=== PATIENT | female | born 1955 | race Caucasian/White ===

== ENCOUNTER 2016-04-14 18:15 | Emergency (ER) | payer OTHER ==
[~2016-04-14] VITALS: Ht 137.2 cm; Wt 50.0 kg
[~2016-04-14 18:15] MED LIST: ONDA4TAB35 PO
[2016-04-14 18:35] VITALS: Ht 137.2 cm; Wt 50.0 kg
[2016-04-14] MEDS ORDERED: FAMOTIDINE 20 MG INJ IV STA (18:46)
[2016-04-14] MEDS ORDERED: ONDANSETRON 4 MG INJ IV STA (18:46)
[2016-04-14] MEDS ORDERED: SOD CHLORIDE 0.9% 1,000 ML IV STA ×2 (18:46→21:15)
[2016-04-14] MEDS ORDERED: morphine 4 MG/ML VIAL IV STA ×3 (18:46→22:02)
[2016-04-14 19:05] LABS: BASOPHIL # 0.1 10^3/ul (0.0-0.1); BASOPHILS % 0.9 % (0.0-2.0); EOSINOPHILS % 0.1 % (0.0-7.0); HEMATOCRIT 37.7 % (37.0-47.0); HEMOGLOBIN 12.9 g/dl (12.0-16.0); LYMPHOCYTES # 1.1 10^3/ul (0.8-2.9); LYMPHOCYTES % 14.5 % (15.0-51.0); MEAN CORPUSCULAR HEMOGLOBIN 27.7 pg (29.0-33.0); MEAN CORPUSCULAR HGB CONC 34.2 g/dl (32.0-37.0); MEAN PLATELET VOLUME 9.7 fl (7.4-10.4); MONOCYTES % 0.2 % (0.0-11.0); NEUTROPHIL # 6.5 10^3/ul (1.6-7.5); NEUTROPHILS % 84.3 % (39.0-77.0); PLATELET COUNT 316 10^3/UL (140-440); RED BLOOD COUNT 4.66 10^6/ul (4.20-5.40); RED CELL DISTRIBUTION WIDTH 12.8 % (11.5-14.5); UNCORRECTED WBC 7.7 10^3/ul (4.8-10.8); WHITE BLOOD COUNT 7.7 10^3/ul (4.8-10.8)
[2016-04-14 19:12] LABS: CONDITION 1; LH ANALYZER COMMENTS 1
[2016-04-14 19:22] LABS: ALBUMIN 4.6 g/dl (3.3-4.9)
[2016-04-14 19:25] LABS: ALBUMIN/GLOBULIN RATIO 1.35; BILIRUBIN,DIRECT 0.9 mg/dl (0.00-0.20); BILIRUBIN,INDIRECT 0.8 mg/dl (0-1.1); BILIRUBIN,TOTAL 1.7 mg/dl (0.2-1.3); CREATININE 0.79 mg/dl (0.44-1.00)
[2016-04-14 19:26] LABS: CALCIUM 10.4 mg/dl (8.4-10.2)
--- NOTE | 2016-04-14 21:07 | RADRPT ---
PROCEDURE: CT Abdomen and Pelvis without contrast. CLINICAL INDICATION: Abdominal pain, vomiting, history of pancreatitis. TECHNIQUE: A CT scan of the abdomen and pelvis was performed without intravenous contrast. Buenrostro l and sagittal reformatted images were generated. Images were reviewed on a high-resolution PACS wor kstation. CTDIvol: 7.35 mGy. DLP: 394.74 mGy-cm. One or more of the following dose reduction techniques were used: - Automated exposure control. - Adjustment of the mA and/or kV according to patient size. - Use of iterative reconstruction technique. COMPARISON: None. FINDINGS: There is mild atelectasis in both lower lobes. Evaluation of the abdominal and pelvic viscera is limited by the lack of oral and intravenous contra st. The liver is unremarkable. The gallbladder is normal in appearance. The common bile duct is not well seen. The spleen is not enlarged. There is infiltraton of the peripancreatic fat, consistent with p ancreatitis. The pancreatic duct is not dilated. No pseudocyst is identified. Evaluation of the jeremiah pancreatic vessels is limited without intravenous contrast. The kidneys are mildly atrophic. There is no perinephric fat stranding. No hydronephrosis is seen. N o urinary stone is identified. The adrenal glands are unremarkable. The small and large bowel are normal in caliber. There is no bowel wall thickening. There is mild co lonic diverticulosis. The appendix is normal. The urinary bladder is unremarkable. The pelvic organs are within normal limits. No lymphadenopathy is identified. There is no ascites. No pneumoperitoneum is seen. There are mild t o moderate arterial calcifications. No suspicious osseous lesion is idenitified. IMPRESSION: 1. Pancreatitis. No pseudocyst is identified. Evaluation for pancreas necrosis and patency of the peripancreatic vessels is precluded by the lack of intravenous contrast. 2. Mildly atrophic kidneys. 3. Mild colonic diverticulosis. 4. Mild to moderate atherosclerotic arterial calcifications. RPTAT: HTAR .Dm Huitron MD, Date Time Electronically viewed and signed by .Dm Huitron MD, on 04/14/2016 21:07 .R/
--- NOTE | 2016-04-14 21:35 | ERA ---
ER Documentation Chief Complaint Date/Time DATE: 04/14/16 TIME: 21:33 Chief Complaint abdominal pain and vomitting since 5am, h/o pancreatitits HPI This is a 60-year-old female presents to the emergency room for evaluation of abdominal pain, nausea and vomiting since 5 AM this morning. This patient does have history of pancreatitis. According to the patient and the patient's son patient is not an alcoholic, does not consume alcohol at all, and has no history of gallstones. Patient localizes pain to the epigastric region and describes as achy pain with radiation to her back ROS All systems reviewed and are negative except as per history of present illness. Medications Home Meds Active Scripts Ondansetron Hcl* (Zofran* ODT) 4 mg -ODT Tab.disper, 4 MG PO Q6 Y for NAUSEA AND /OR VOMITING, #10 TAB Prov:DARRYN WATERS DO 05/14/15 Allergies Allergies: Uncoded Allergies: SULFA (Allergy, Intermediate, 04/14/16) PMhx/Soc History of Surgery: Yes (c section) Anesthesia Reaction: No Hx Neurological Disorder: No Hx Respiratory Disorders: No Hx Cardiac Disorders: Yes (htn,) Hx Psychiatric Problems: No Hx Miscellaneous Medical Probl: Yes (GERD, pancreatitis, dm, hiatal hernia) Hx Alcohol Use: No Hx Substance Use: No Hx Tobacco Use: Yes Smoking Status: Light tobacco smoker Physical Exam Vitals Vital Signs Date Time Temp Pulse Resp B/P Pulse Ox O2 Delivery O2 Flow Rate FiO2 04/14/16 21:21 99.6 120 18 184/116 100 Room Air 04/14/16 18:35 98.9 82 25 146/120 99 Physical Exam INITIAL VITAL SIGNS: Reviewed by me GENERAL: The patient is well developed and appropriate for usual state of health in no apparent distress HEENT: Dry mucous membranes, pupils equal, round, and reactive to light. EOMI. There is no scleral icterus. NECK: C-spine is soft and supple, there is no meningismus. There is no cervical lymphadenopathy. LUNGS: Clear to auscultation bilaterally. There are no rales, wheezes or rhonchi. HEART: Regular rate and rhythm, no murmurs, clicks, rubs or gallops. ABDOMEN: Epigastric tenderness to palpation, non-distended. There are bowel sounds in all four quadrants. No rebound or guarding. EXTREMITIES: There is no peripheral cyanosis or edema. No focal swelling or erythema. NEUROLOGICAL: The patient moves all four extremities with 5/5 strength. Cranial nerves II - XII are intact. Normal gait. Alert and oriented SKIN: There is no apparent rash or petechiae. HEME/LYMPHATIC: There is no evidence of excessive bruising or lymphedema. PSYCHIATRIC: The patient does not appear anxious or depressed. Result Diagram: 04/14/16183904/14/161839 Results 24 hrs Laboratory Tests Test 04/14/16 18:40 Alanine Aminotransferase (ALT/SGPT) 335IU/L Albumin 4.6g/dl Albumin/Globulin Ratio 1.35 Alkaline Phosphatase 384IU/L Anion Gap 25 Aspartate Amino Transf (AST/SGOT) 499IU/L Basophils # 0.110^3/ul Basophils % 0.9% Blood Morphology Comment Blood Urea Nitrogen 13mg/dl Calcium Level 10.4mg/dl Carbon Dioxide Level 25mmol/L Chloride Level 97mmol/L Creatinine 0.79mg/dl Direct Bilirubin 0.90mg/dl Eosinophils # 0.010^3/ul Eosinophils % 0.1% Globulin 3.40g/dl Glucose Level 312mg/dl Hematocrit 37.7% Hemoglobin 12.9g/dl Indirect Bilirubin 0.8mg/dl Lipase 90620C/L Lymphocytes # 1.110^3/ul Lymphocytes % 14.5% Mean Corpuscular Hemoglobin 27.7pg Mean Corpuscular Hemoglobin Concent 34.2g/dl Mean Corpuscular Volume 81.0fl Mean Platelet Volume 9.7fl Monocytes # 0.010^3/ul Monocytes % 0.2% Neutrophils # 6.510^3/ul Neutrophils % 84.3% Nucleated Red Blood Cells # 0.010^3/ul Nucleated Red Blood Cells % 0.0/100WBC Platelet Count 61166^3/UL Potassium Level 4.0mmol/L Red Blood Count 4.6610^6/ul Red Cell Distribution Width 12.8% Sodium Level 143mmol/L Total Bilirubin 1.7mg/dl Total Protein 8.0g/dl White Blood Count 7.710^3/ul Current Medications Medications (Trade) Dose Ordered Sig/Finn Route PRN Reason Start Time Stop Time Status Last Admin Dose Admin Sodium Chloride (NS) 1,000 ml @ 1,000 mls/hr Q1H STAT IV 04/14/16 18:46 04/14/16 19:45 DC 04/14/16 19:16 Morphine Sulfate (morphine) 4 mg ONCE STAT IV 04/14/16 18:46 04/14/16 19:09 DC 04/14/16 19:16 Ondansetron HCl (Zofran Inj) 4 mg ONCE STAT IV 04/14/16 18:46 04/14/16 19:09 DC 04/14/16 19:16 Famotidine (Pepcid Iv) 20 mg ONCE STAT IV 04/14/16 18:46 04/14/16 19:09 DC 04/14/16 19:16 Morphine Sulfate 4 mg 4 mg ONCE STAT IV 04/14/16 19:11 04/14/16 19:12 DC 04/14/16 19:53 Sodium Chloride (NS) 1,000 ml @ 1,000 mls/hr Q1H STAT IV 04/14/16 21:15 04/14/16 22:14 Procedures/MDM CT abdomen pelvis without: 1. Pancreatitis. No pseudocyst is identified. Evaluation for pancreas necrosis and patency of the peripancreatic vessels is precluded by the lack of intravenous contrast. 2. Mildly atrophic kidneys. 3. Mild colonic diverticulosis. 4. Mild to moderate atherosclerotic arterial calcifications. This 60-year-old female presents to the emergency room for evaluation of abdominal pain. This patient does have a history of pancreatitis. She was tender to palpation on my examination and mildly tachycardic. This patient had lab work drawn which does show acute pancreatitis with a lipase greater than 25, 000. The patient was given 4 mg of morphine with mild relief, she was given additional 4 mg of morphine, and 2 L of IV fluids. CT does not show any obstruction causing pancreatitis. This patient Is cap to [facility]. I have spoken to Dr. parsons who is the accepting physician. The patient is stable for transfer at this time. Departure Diagnosis: Primary Impression: Acute pancreatitis Additional Impressions: Abdominal pain Hyperglycemia Condition: GOYO Singer DO Apr 14, 2016 21:35
[2016-04-14 22:20] LABS: ADD UMIC NO; URINE BILIRUBIN (Dip) 2+ (NEGATIVE); URINE BLOOD (Dip) NEGATIVE (NEGATIVE); URINE COLOR YELLOW (YELLOW); URINE GLUCOSE (Dip) >=1000 % (NEGATIVE); URINE KETONES (Dip) NEGATIVE (NEGATIVE); URINE LEUKOCYTE ESTERASE (Dip) NEGATIVE (NEGATIVE); URINE NITRITE (Dip) NEGATIVE (NEGATIVE); URINE TOTAL PROTEIN (Dip) NEGATIVE (NEGATIVE); URINE UROBILINOGEN (Dip) 0.2 E.U./dL (0.1-1.0)
[2016-04-14] MEDS ORDERED: METOCLOPRAMIDE 10 MG INJ IV ONE (22:30)
[2016-04-14 22:46] LABS: ICTOTEST POSITIVE (NEGATIVE)
[2016-04-14] MEDS ORDERED: HYDROmorphONE 1 MG/ML SYG IV STA (23:04)
[2016-04-15 01:00] VITALS: BP 109/71; PULSE 119; RESP 19; TEMP 102
[2016-04-15] MEDS ORDERED: ACETAMINOPHEN 500 MG TAB ONE (01:22)
[2016-04-15] MEDS ORDERED: KETOROLAC 15 MG INJ IV STA (01:26)
== END 2016-04-15 01:15 | disposition home or self-care (01) ==
LOC: E/R 18:15
DX: K85.90 Acute pancreatitis without necrosis or infection, unspecified (principal); R10.13 Epigastric pain; E11.65 Type 2 diabetes mellitus with hyperglycemia; I10 Essential (primary) hypertension; F17.210 Nicotine dependence, cigarettes, uncomplicated; R11.2 Nausea with vomiting, unspecified
CPT/HCPCS: 36415; 74176; 80053; 81003; 83690; 85025; 96361; 96374; 96375; 96376; J1170; J1885; J2270; J2405; J2765; J7030; Z7502; Z7610